=== PATIENT | male | born 1970 | race African-American/Black ===

== ENCOUNTER 2023-05-03 18:23 | Emergency (ER) | payer SELFPAY ==
[2023-05-03 19:33] LABS: Amphetamine Not Detected (NotDetected); Benzodiazepine Screen Not Detected (NotDetected); Cocaine Metabolite Screen Not Detected (NotDetected); Methadone Not Detected (NotDetected); Methamphetamine Not Detected (NotDetected); Opiate Screen Not Detected (NotDetected); Phencyclidine (PCP) Not Detected (NotDetected); THC/Cannabinoid Screen Not Detected (NotDetected); Tricyclic Screen Not Detected (NotDetected)
[2023-05-03 19:34] LABS: Barbiturates Screen Not Detected (NotDetected); Oxycodone Screen Not Detected (NotDetected)
== END 2023-05-03 22:28 | disposition left against medical advice (07) ==
LOC: NAV ERS 18:23
DX: R45.851 Suicidal ideations (principal); I10 Essential (primary) hypertension; F17.210 Nicotine dependence, cigarettes, uncomplicated
CPT/HCPCS: 80306; 93005

== ENCOUNTER 2023-08-01 16:34 | Emergency (ER) | payer OTHER, SELFPAY | END 2023-08-01 17:44 | disposition home or self-care (01) | LOC: NAV ERS 16:34 | DX: S40.011A Contusion of right shoulder, initial encounter (principal); F17.210 Nicotine dependence, cigarettes, uncomplicated; W11.XXXA Fall on and from ladder, initial encounter ==